=== PATIENT | female | born 1970 | race Caucasian/White ===

== ENCOUNTER → 2018-02-07 16:24 | Outpatient (CLI) | payer BC, SELFPAY ==
--- NOTE | 2018-02-07 16:28 | MM_ITS ---
MM Dig screening mamm BI w/CAD CAD Screening COMPARISON: Digital right mammogram 12/30/2015 and digital mammograms with CAD 07/25/2013 INDICATION: There is no personal or family history of breast cancer TECHNIQUE: Standard CC and MLO images were obtained. R2 CAD reviewed. FINDINGS: Moderate diffuse fibro glandular densities are seen in both breast primarily upper outer quadrants. There are few benign-appearing calcifications in each breast. There is a biopsy clip deep within the right breast. There is no suspicious lesion and no suspicious microcalcifications. IMPRESSION: Moderate diffuse breast density with no suspicious lesion seen BI-RADS Category: 2 Benign Finding(s) RECOMMENDED FOLLOW-UP: 1YR - 1 YEAR FOLLOW-UP (A letter has been sent to the patient regarding results of the study.)
== END ==
PROVIDERS: Family Provider Family Medicine; PCP Family Medicine; Visit Provider Obstetrics & Gynecology
DX: Z12.31 Encounter for screening mammogram for malignant neoplasm of breast (principal)
CPT/HCPCS: 77067

== ENCOUNTER → 2019-08-15 17:01 | Outpatient (CLI) | payer BC, SELFPAY ==
[2019-08-15 19:02] LABS: Alanine Aminotransferase 19 U/L (12-78); Alkaline Phosphatase 106 U/L (46-116); Aspartate Amino Transferase 9 U/L (15-37); Bilirubin,Direct 0.1 mg/dL (0.0-0.2); Bilirubin,Indirect 0.2 mg/dL (0.0-0.9); Bilirubin,Total 0.3 mg/dL (0.2-1.0); Total Protein,Serum 7.1 gm/dL (6.4-8.2)
== END ==
PROVIDERS: Visit Provider Family Medicine
DX: E78.2 Mixed hyperlipidemia (principal)
CPT/HCPCS: 80076

== ENCOUNTER → 2020-02-18 15:32 | Outpatient (CLI) | payer BC, SELFPAY ==
[2020-02-20 06:45] LABS: Covid-19 Nasal PCR Sendout Lex NOT DETECTED
== END ==
PROVIDERS: PCP Family Medicine; Visit Provider Family Medicine
DX: Z03.818 Encounter for observation for suspected exposure to other biological agents ruled out (principal)
CPT/HCPCS: U0004

== ENCOUNTER → 2020-05-07 14:46 | Outpatient (CLI) | payer BC, SELFPAY | PROVIDERS: PCP Family Medicine; Visit Provider Family Medicine | DX: Z03.818 Encounter for observation for suspected exposure to other biological agents ruled out (principal) | CPT/HCPCS: U0003 ==

== ENCOUNTER → 2020-07-14 13:20 | Outpatient (CLI) | payer BC, SELFPAY ==
--- NOTE | 2020-07-14 13:27 | MM_ITS ---
PROCEDURE: MM DIG SCREENING MAMM BI W/CAD Digital Breast Tomosynthesis Included CLINICAL INDICATION: Routine Screening Mammogram There is no personal or family history of breast cancer. There has been a previous biopsy right breast for benign disease. COMPARISON: MG DMSB DIG MAMM-SCREEN SAY from 10/16/2015 MG DMDXUAVR DIG MAMM-DX UNI ADD VIEWS-RT from 11/16/2015 MG DMDXUR DIG MAMM-DX UNI-RT from 12/30/2015 MG SCBI MM Dig screening mamm BI w/CAD from 02/07/2018 TECHNIQUE: Standard CC and MLO images and 3D Tomosynthesis was obtained. R2 CAD reviewed. FINDINGS: Moderate diffuse fibroglandular densities are seen in both breasts. There is a biopsy clip deep within the right breast. There are no CAD markings. There are couple of benign-appearing microcalcifications in each breast. There is no suspicious lesion and no suspicious microcalcifications. IMPRESSION: Moderate breast density with no suspicious lesions seen BI-RAD Category: 2 Benign Finding(s) FOLLOW-UP: 1YR 1 Year Follow-up (A letter has been sent to the patient regarding results of the study.) Dictated by: Dr. Moncho Dos Santos MD 07/16/2020 13:27 Dr. Moncho Dos Santos MD in [place] 07/16/2020 13:27
== END ==
PROVIDERS: PCP Family Medicine; Visit Provider Obstetrics & Gynecology
DX: Z12.31 Encounter for screening mammogram for malignant neoplasm of breast (principal)
CPT/HCPCS: 77063; 77067

== ENCOUNTER → 2023-01-04 15:00 | Outpatient (CLI) | payer BC, SELFPAY ==
--- NOTE | 2023-01-04 15:09 | XR_ITS ---
FINAL REPORT CLINICAL HISTORY: RT ANTERIOR KNEE PAIN, POPPING, SWELLING FINDINGS: There is no acute fracture or dislocation. Mild degenerative changes present in the right knee. There is no soft tissue abnormality. IMPRESSION: No acute fracture Mild degenerative change. Reviewed, Interpreted and Dictated by Nicola Roper MD Transcribed by Sarai Vuong Authenticated and [facility]
== END ==
LOC: RAD 15:02
PROVIDERS: PCP Family Medicine; Visit Provider Nurse Practitioner Family
DX: M25.561 Pain in right knee (principal)
CPT/HCPCS: 73562

== ENCOUNTER → 2023-01-18 10:32 | Outpatient (CLI) | payer BC, SELFPAY ==
[2023-01-18 10:47] LABS: Basophils # 0.1 K/mm3 (0-0.2); Basophils % 0.7 % (0.1-2.0); Eosinophils # 0.1 K/mm3 (0.0-0.4); Eosinophils % 1.6 % (0.1-12.0); Hematocrit 36.8 % (37.0-47.0); Hemoglobin 12.7 g/dL (12.2-16.2); Lymphocytes # 1.8 K/mm3 (0.7-4.5); Lymphocytes % 26.6 % (10-50); Mean Corpuscular HGB Conc 34.5 g/dL (31.8-35.4); Mean Corpuscular Hemoglobin 29.1 pg (27.0-31.2); Mean Corpuscular Volume 84.4 fl (81-99); Mean Platelet Volume 8.2 fl (7.4-10.4); Monocytes # 0.4 K/mm3 (0.1-1.0); Monocytes % 5.5 % (1.7-9.3); Neutrophils # 4.4 K/mm3 (1.8-7.8); Neutrophils % 65.6 % (37.0-80.0); Platelet Count 365 K/mm3 (142-424); Red Blood Count 4.36 M/mm3 (4.20-5.40); Red Cell Distribution Width 13.5 % (11.5-17.5); White Blood Count 6.7 K/mm3 (4.8-10.8)
[2023-01-18 11:09] LABS: Chloride 100 mmol/L (98-107)
[2023-01-18 11:12] LABS: Blood Urea Nitrogen 17 mg/dl (7-17); Calcium 9.4 mg/dl (8.4-10.2); Carbon Dioxide 26 mmol/L (22.0-30.0); Estimated Glomerular Filt Rate 105 ml/min (>60); GFR (African American) 127 ML/MIN (>60); Glucose 239 mg/dl (74-100)
[2023-01-18 11:15] LABS: Sodium 137 mmol/L (136-145)
== END ==
LOC: LAB 10:33
PROVIDERS: PCP Family Medicine; Visit Provider Surgery
DX: D17.1 Benign lipomatous neoplasm of skin and subcutaneous tissue of trunk (principal); Z01.812 Encounter for preprocedural laboratory examination
CPT/HCPCS: 36415; 80048; 85025

== ENCOUNTER 2023-02-02 06:03 | Day surgery (SDC) | payer BC, SELFPAY ==
[2023-02-02] VITALS (10 sets, daily range): BP systolic 108–142; BP diastolic 59–76; PULSE 91–100; RESP 16–18; TEMP 36.2–36.4; O2SAT 95–97; BMI 37.2
[2023-02-02 06:35] LABS: POC Glucose,Bedside 188 (70-110)
--- NOTE | 2023-02-02 06:59 | EXP.ANES.CKL ---
[facility] Disclaimer: The information contained in this section may have been updated after the patient was seen, as this information can be updated by other users. Medical History History of diabetes mellitus History of hyperlipidemia History of hypertension Lipoma of back Surgical History (Updated 02/02/23 @ 06:20 by Javier Weiner RN) History of History of colonoscopy History of lumbar discectomy Family History (Updated 02/02/23 @ 06:22 by Javier Weiner RN) Other Family history of CVA Family history of diabetes mellitus Family history of hypertension Social History (Updated 02/02/23 @ 06:24 by Javier Weiner RN) Smoking Status: Never smoker alcohol intake: never substance use type: denies use current occupational status: employed Travel in the last 8 weeks: None [facility] Anesthesia Checklist Patient Identification Patient Identification: Arm Band and Verbal (Name & ) Structural Data Admitted From: Home Planned Operative Procedure/s: excision lipoma on back Consent for Planned Operative Procedure(s) Verified: Yes Verified Documents: Surgical Consent and History and Physical NPO Status Verified Time NPO: 00:00 Additional verifications Fingerstick Blood Glucose: 188 Anesthesia Reactions: No Hx Blood Transfusions: No Blood Transfusion Reaction: No Airway Assessment Dentition: Good Dentition Neurological Assessment Level of Consciousness: Awake and Alert Hx Seizures: No Anesthesia Plan Anesthesia Risk discussed: Yes ASA Class: II Anesthesia Type: General
--- NOTE | 2023-02-02 07:58 | P.PNANES_ITS ---
[facility] Anesthesia Record Part I Anesthesia Record I Intake, IV Amount: 400 Estimated blood loss (mL): 5 Urine output (mL): 0 Blood Products used (#): none Blood Pressure: 142/72 SaO2: 96 Pulse Rate: 97 Respiratory Rate: 16 Temperature: 97.2 F Patient is:: Drowsy and Stable Stable to PACU at:: 07:55
--- NOTE | 2023-02-02 08:01 | EXP.OP.NOTE ---
Date of procedure: 02/02/23 Pre-op Diagnosis:: Right mid/upper back lipoma (8 cm) Post-op Diagnosis:: Same Procedure performed:: Excision of right mid/upper back lipoma (8 cm) Surgeon:: Adalberto Genao MD Anesthesia: LMA Estimated blood loss (mL): 10 Operative findings:: Lipoma within deep subcutaneous tissue encroaching upon fascial margin Operative note:: After informed consent was obtained the patient was taken to the operating room and placed in the supine position. General anesthesia with laryngeal mask airway was achieved. She was transferred to the left lateral decubitus position. Her back was then prepped and draped in a sterile fashion. After infiltration local anesthetic an incision was made over the palpable lesion. The deep subcutaneous tissue was dissected with electrocautery to the level of the encapsulated lipoma. A combination of blunt dissection and electrocautery were utilized to transect around the fatty tumor. The deeper margin encroached upon the fascia but did not penetrate the musculature. The lesion was excised in toto and passed off for pathologic evaluation. Electrocautery was utilized to achieve hemostasis. Skin was then reapproximated with interrupted 4-0 nylon in a mattress fashion. Dressings were applied and the patient was transferred to recovery in stable condition after removal of her laryngeal mask airway. Condition: stable Disposition: PACU Specimens:: Right mid/upper back lipoma Complications:: No immediate
[2023-02-02 08:07] LABS: POC Glucose,Bedside 170 (70-110)
--- NOTE | 2023-02-02 08:29 | SUR.PHASEI ---
0825- detailed report called to marcelle bush in post op 0826- pt left in stable condition with marcelle bush in post op at this time. VSS
--- NOTE | 2023-02-02 09:53 | EXP.ANES.II ---
[facility] Anesthesia Record Part II Anesthesia Record Part II Discharge Time: 08:25 Destination: Surgical Day Care (OP Surgery) PACU nurse assessment reviewed?: Yes Patient Condition:: Good Anesthesia Complications:: None Swallowing reflex intact?: Yes Cyanosis?: No Blood Pressure: 125/69 Pulse Rate: 96 Temperature: 97.4 F Mental Status: Alert & Oriented Pain level:: 0 Nausea and/or vomitting:: None Intake, IV Amount: 0
== END 2023-02-02 08:59 | disposition home or self-care (01) ==
PROVIDERS: PCP Family Medicine; Visit Provider Surgery
PROC: (CPT 11406; principal; 2023-02-02 07:30)
DX: D17.1 Benign lipomatous neoplasm of skin and subcutaneous tissue of trunk (principal); E11.9 Type 2 diabetes mellitus without complications
CPT/HCPCS: 11406; 82962; 96374; J2405

== ENCOUNTER → 2023-02-10 12:00 | Outpatient (POV) | payer BC, SELFPAY ==
[2023-02-10 12:27] VITALS: BP 146/92; PULSE 100; RESP 18; O2SAT 96; BMI 36.0
--- NOTE | 2023-02-10 12:42 | EXP.PAIN.OV ---
HPI Data of Consult Patient: new to practice Consult date: 02/10/23 Requesting Physician: Jignesh Allison CRNA Consult Narrative Reason for consult: Chronic right knee pain. History of present illness: Ms. Head is a 52 year old female who comes our clinic today for initial evaluation regarding which she describes as chronic right knee pain. Patient states the right knee began hurting 7 months ago. It is gradually gotten worse. She has difficulty with ambulation. Difficulty transitioning from sitting to standing. Difficulty with stairs. All of this due to right knee pain. She rates her pain 8/10 today. Upon examination it is obvious her right knee is swollen. Much larger than her left knee in comparison. She describes the pain as constant, dull, aching, sharp and stabbing at times. She initially went to her PCP regarding this pain. They gave her Medrol Dosepak. She reports the Medrol Dosepak helped slightly. CC: Jignesh Allison CRNA [facility] Disclaimer: The information contained in this section may have been updated after the patient was seen, as this information can be updated by other users. Medical History History of diabetes mellitus History of hyperlipidemia History of hypertension Lipoma of back Surgical History History of History of colonoscopy History of lumbar discectomy Family History Other Family history of CVA Family history of diabetes mellitus Family history of hypertension Social History (Updated 02/10/23 @ 12:28 by Twila Ann RN) Smoking Status: Never smoker alcohol intake: never substance use type: denies use current occupational status: employed Travel in the last 8 weeks: None Meds Home Medications and Allergies Home Medications Medication Instructions Recorded Confirmed Type dapagliflozin propaned 5 2 tab PO QAM Diabetes 10/23/17 02/10/23 History mg-metformin ER 1,000 mg tablet, ext rel 24hr (Xigduo XR) paroxetine HCl 40 mg tablet (Paxil) 40 mg PO QAM mood 10/23/17 02/10/23 History atorvastatin 20 mg tablet 20 mg PO DAILY choilesterol 07/07/20 02/10/23 History semaglutide 7 mg tablet (Rybelsus) 7 mg PO DAILY Diabetes 07/07/20 02/10/23 History lisinopril 5 mg tablet 5 mg PO DAILY bp 01/18/23 02/10/23 History hydrocodone 5 mg-acetaminophen 325 1 tab PO Q6H PRN post-op pain #13 02/02/23 02/10/23 Rx mg tablet tabs New Prescriptions to Start Prescriptions: Allergies Allergy/AdvReac Type Severity Reaction Status Date / Time No Known Drug Allergies Allergy Unknown Verified 02/08/23 09:40 [NKDA] Objective Vital signs: Pulse Resp BP Pulse Ox O2 Del Method 100 H 18 146/92 H 96 Room Air 02/10/23 12:27 02/10/23 12:27 02/10/23 12:27 02/10/23 12:27 02/10/23 12:27 Opioid Risk Tool Opioid Risk Tool-Female Family hx alcohol abuse: No Family hx illegal drugs: No Family hx rx drug abuse: No Personal hx alcohol abuse: No Personal hx illegal drugs: No Personal hx rx drug abuse: No Age: 45+ Hx of sexual abuse: No Mental health issues-ADD,OCD,Bipolar, etc: No Hx of depression: No Female Risk Score: 0 Assessment and Plan *Assessment and plan (1) Arthritis of right knee: Status: Acute Category: Medical Code(s): M17.11 - Unilateral primary osteoarthritis, right knee (2) Chronic pain of right knee: Status: Acute Category: Medical Code(s): M25.561 - Pain in right knee; G89.29 - Other chronic pain (3) Effusion of knee joint right: Status: Acute Category: Medical Code(s): M25.461 - Effusion, right knee Plan Discussed in detail with the patient regarding treatment options of her right knee effusion and pain. I think it would be reasonable to aspirate the knee. After aspiration
== END ==
LOC: SC.PAIN 12:00
PROVIDERS: Visit Provider Nurse Anesthetist, Certified Registered
DX: M17.11 Unilateral primary osteoarthritis, right knee (principal); M25.561 Pain in right knee; G89.29 Other chronic pain; M25.461 Effusion, right knee
CPT/HCPCS: 99202; G0463

== ENCOUNTER 2023-02-21 13:49 | Day surgery (SDC) | payer BC, SELFPAY ==
[2023-02-21 13:57] VITALS: BP 145/79; PULSE 109; RESP 18; TEMP 36.3; O2SAT 97; BMI 36.0
--- NOTE | 2023-02-21 14:09 | EXP.PAIN.PRO ---
Procedure Date: 02/21/23 Time: 14:00 Anesthesiologist:: Jignesh Allison CRNA Complications:: None Pre-procedure Diagnosis:: Effusion right knee. Osteoarthritis right knee. Chronic right knee pain. Post-procedure Diagnosis:: Same. Indications for Procedure:: Patient is a very pleasant 52-year-old female that comes our clinic today for aspiration right knee and intra-articular cortisone injection. Patient complains of right knee pain with ambulation. Difficulty with stairs. She rates her pain 7/10. Procedure Details:: Details of the procedure explained to the patient. The patient taken the procedure room placed in the supine position. The right knee was gapped with a pillow. The anterior and lateral portions of the right knee were cleansed using chlorhexidine as a cleansing solution. Using a 25-gauge needle the skin and subcutaneous tissue was anesthetized with 1 cc of 1% lidocaine on the superior right lateral border of the knee joint. Using an 18-gauge inch and half needle the right knee joint was accessed through the same marker. 10 mL of solution of a clear yellow-tinged fluid was aspirated from the knee joint. At this time a 10 cc solution containing 0.25% Marcaine +1% lidocaine and 40 mg of Depo-Medrol was injected. Needle was removed. Band-Aid applied. Patient tolerated procedure without difficulty. There are no complications. Plan and Disposition:: Patient was discharged without incident.
[2023-02-21 14:10] VITALS: BP 130/86; PULSE 94; RESP 18; O2SAT 98
== END 2023-02-21 14:10 | disposition home or self-care (01) ==
PROVIDERS: PCP Family Medicine; Visit Provider Nurse Anesthetist, Certified Registered
DX: M25.461 Effusion, right knee (principal); M17.11 Unilateral primary osteoarthritis, right knee; M25.561 Pain in right knee; G89.29 Other chronic pain
CPT/HCPCS: 20610; J1040

== ENCOUNTER → 2023-03-07 13:31 | Outpatient (CLI) | payer BC, SELFPAY ==
--- NOTE | 2023-03-07 13:36 | MM_ITS ---
PROCEDURE INFORMATION: Exam: MG Bilateral Screening 3D Mammography Exam date and time: 03/07/2023 1:26 PM Age: 52 years old Clinical indication: Screening examination; No personal or family history of breast cancer TECHNIQUE: Imaging protocol: Bilateral Screening tomosynthesis and 2D mammography including computer-aided detection (CAD) when performed. COMPARISON: 1. MG MM DIG SCREENING MAMM BI W/CAD 07/14/2020 1:41 PM 2. MG SCBI MM Dig screening mamm BI w/CAD 02/07/2018 4:35 PM FINDINGS: MAMMOGRAPHY: Breast composition: The breasts are heterogeneously dense, which may obscure small masses. Mass: None. Architectural distortion: None. Calcifications: No suspicious calcifications. Asymmetric density: None. Skin thickening: None. Axillary adenopathy: None. IMPRESSION: No mammographic evidence of malignancy. Annual screening is recommended unless otherwise clinically indicated. ASSESSMENT: BI-RADS Category 1: Negative
== END ==
PROVIDERS: PCP Family Medicine; Visit Provider Obstetrics & Gynecology
DX: Z12.31 Encounter for screening mammogram for malignant neoplasm of breast (principal)
CPT/HCPCS: 77063; 77067

== ENCOUNTER → 2023-03-08 14:20 | Outpatient (POV) | payer BC, SELFPAY ==
[2023-03-08 14:46] VITALS: BP 149/100; PULSE 89; RESP 20; BMI 34.8
--- NOTE | 2023-03-08 14:59 | EXP.PAIN.SOA ---
[facility] Pain Management SOAP Note Subjective:: Patient is a pleasant 52-year-old female who presents today for follow-up of right knee intra-articular injection along with aspiration of joint effusion on 02/21/2023. We are currently treating the patient for chronic right knee pain, osteoarthritis right knee. Today she rates her pain a 1 out of 10. She states that she has had at least 50% improvement following this procedure. She states that initially the first couple days after the injection worked great and she had significant improvement. She states then it went back to baseline however over the next couple of days it did get better and continues to do so up until today. Patient states that she has noticed she is not limping when she walks and she has been able to increase her activity with decreased pain symptoms. Patient does state that she is only had the x-ray imaging of her right knee and has not seen any orthopedic doctors for this pain. Her [place] is [phone]. Its been reviewed and appropriate. Review of Systems: General: No recent weight changes, no fever, no sleep disturbances Respiratory: No cough, no shortness of air, no recurring pulmonary infections Cardiovascular/peripheral vascular: No chest pain, no palpitations, no edema, no shortness of breath Gastrointestinal: No new onset incontinence, normal bowel movements reported Genitourinary: No new onset incontinence Musculoskeletal: Right knee pain Psychiatric: [Normal mood/affect] Neurological: [Denies weakness in extremities], [denies balance issues] Objective:: Physical Exam: General: Alert and oriented x3, no acute distress, pleasant and cooperative Lungs: Respirations even and unlabored, symmetrical chest expansion Eyes: PERRL Musculoskeletal: Flexion and extension of right knee somewhat guarded secondary to pain, [antalgic gait noted] Neurological: Speech clear, no gross sensory deficit Assessment:: Chronic right knee pain, osteoarthritis right knee Plan:: Patient has had significant improvement following her procedure and does not require any additional injective therapy at this time. I will order MRI without contrast of her right knee and I have discussed with her that we may in the future send her for referral for an rn orthopedic based off the findings. I have also discussed with the patient to try the compounding cream on her right knee and let us know if this provides additional relief. Patient will return to clinic in 1 month following her MRI for reevaluation of symptoms and plan of care. Patient has been instructed to contact the clinic with any concerns before the next appointment. Dr. Cerna has reviewed this note and agrees with this plan of care. This note was dictated using voice recognition software and make contain errors or omissions. [facility] Disclaimer: The information contained in this section may have been updated after the patient was seen, as this information can be updated by other users. Medical History History of diabetes mellitus History of hyperlipidemia History of hypertension Lipoma of back Surgical History History of History of colonoscopy History of lumbar discectomy Family History Other Family history of CVA Family history of diabetes mellitus Family history of hypertension Social History Smoking Status: Never smoker alcohol intake: never substance use type: denies use current occupational status: employed Travel in the last 8 weeks: None
== END ==
PROVIDERS: Visit Provider Nurse Practitioner Family
DX: M17.11 Unilateral primary osteoarthritis, right knee (principal); M25.561 Pain in right knee; G89.29 Other chronic pain
CPT/HCPCS: 99212; G0463

== ENCOUNTER → 2023-03-13 16:18 | Outpatient (CLI) | payer BC, SELFPAY ==
--- NOTE | 2023-03-13 16:18 | US_ITS ---
PROCEDURE: US TRANSVAGINAL CLINICAL INDICATION: abnormal uterine and vaginal bleeding COMPARISON: No exams were available for comparison FINDINGS: Transvaginal sonographic images of the pelvis were obtained. UTERUS: 10.4 cm x 7.0 cmx 6.1 cm the endometrium could not be visualized. There are at least 3 separate fibroids. Fibroid 1 central measuring 2.4 cm x 2.2 cm x 4.2 cm Fibroid 2 central measuring 4.2 cm x 3.9 cm x 3.1 cm Fibroid 3 posterior measuring 4.6 cm x 5.6 cm x 3.4 cm LEFT OVARY: 1.6 cmx1.4 cmx1.5cm with a volume of 1.7ml.Appears atrophic RIGHT OVARY: 1.7 cmx 1.7 cm. Appears atrophic Both ovaries are seen and appear normal. Doppler flow to both ovaries are seen. There is trace fluid in the cul-de-sac. IMPRESSION: 1. Enlarged uterus with at least 3 fibroids. The largest measures 5.6 cm. The others measure 4.2 cm and 4.2 cm. 2. The endometrium could not be visualized as a result of the fibroids. 3. Both ovaries appear atrophic. 4. There is trace fluid in the cul-de-sac. Dictated by: Kieran Hightower MD 03/14/2023 16:34 Kieran Hightower MD in [place] 03/14/2023 16:34
== END ==
PROVIDERS: PCP Family Medicine; Visit Provider Obstetrics & Gynecology
DX: N93.9 Abnormal uterine and vaginal bleeding, unspecified (principal)
CPT/HCPCS: 76830

== ENCOUNTER → 2023-06-07 16:02 | Outpatient (CLI) | payer BC, SELFPAY ==
[2023-06-07 16:48] LABS: Chloride 97 mmol/L (98-107); Sodium 136 mmol/L (136-145)
[2023-06-07 16:49] LABS: Potassium 3.7 mmoL/L (3.5-5.1)
[2023-06-07 16:51] LABS: Alanine Aminotransferase 32 U/L (12-78); Albumin Level 4.8 g/dl (3.5-5.0); Albumin/Globulin Ratio 1.5 (1.1-1.8); Alkaline Phosphatase 136 U/L (38-126); Anion Gap 13.7 mEq/L (5-15); Aspartate Amino Transferase 33 U/L (14-36); Bilirubin,Total 0.4 mg/dl (0.2-1.3); Blood Urea Nitrogen 21 mg/dl (7-17); Calcium 9.3 mg/dl (8.4-10.2); Carbon Dioxide 29 mmol/L (22.0-30.0); Estimated Glomerular Filt Rate 88 ml/min (>60); GFR (African American) 106 ML/MIN (>60); Globulin 3.1 g/dL (1.3-3.2); Glucose 221 mg/dl (74-100); Total Protein,Serum 7.9 g/dl (6.3-8.2)
[2023-06-07 16:52] LABS: Basophils # 0.1 K/mm3 (0-0.2); Basophils % 0.6 % (0.1-2.0); Eosinophils # 0.4 K/mm3 (0.0-0.4); Eosinophils % 4.9 % (0.1-12.0); Hemoglobin 13.8 g/dL (12.2-16.2); Lymphocytes # 2.1 K/mm3 (0.7-4.5); Lymphocytes % 27.6 % (10-50); Mean Corpuscular HGB Conc 36.2 g/dL (31.8-35.4); Mean Corpuscular Hemoglobin 30.4 pg (27.0-31.2); Mean Platelet Volume 7.8 fl (7.4-10.4); Monocytes # 0.4 K/mm3 (0.1-1.0); Monocytes % 5.2 % (1.7-9.3); Neutrophils # 4.8 K/mm3 (1.8-7.8); Neutrophils % 61.7 % (37.0-80.0); Platelet Count 248 K/mm3 (142-424); Red Blood Count 4.52 M/mm3 (4.20-5.40); Red Cell Distribution Width 14.6 % (11.5-17.5); White Blood Count 7.7 K/mm3 (4.8-10.8)
[2023-06-07 17:08] LABS: HCG,Quantitative < 2 mIU/ml (0-5.42)
== END ==
PROVIDERS: PCP Family Medicine; Visit Provider Obstetrics & Gynecology
DX: N93.9 Abnormal uterine and vaginal bleeding, unspecified (principal)
CPT/HCPCS: 36415; 80053; 84702; 85025; 86850

== ENCOUNTER 2023-06-14 08:14 | Inpatient (IN) | payer BC, SELFPAY ==
[2023-06-13 12:41] VITALS: BMI 36.3
[2023-06-14] VITALS (21 sets, daily range): BP systolic 125–181; BP diastolic 65–100; PULSE 91–110; RESP 12–18; TEMP 36.4–43; O2SAT 94–100
[2023-06-14 06:31] LABS: POC Glucose,Bedside 192 (70-110)
--- NOTE | 2023-06-14 07:22 | EXP.HP ---
History of Present Illness *Admission Date: 06/14/23 *Reason for visit:: hysterectomy *History of present illness: Jodie Head is an established pt presenting today for hysterectomy. Plan for a total laparoscopic hysterectomy with bilateral salpingo-oophorectomy. Surgical hx significant for CS x2, and a lumbar discectomy. Medical hx: HTN, Diabetes, HLD and AUB NKDA Previous visits: Transvaginal ultrasound that revealed several fibroids with a clinical history of heavy prolonged painful menses. [facility] Disclaimer: The information contained in this section may have been updated after the patient was seen, as this information can be updated by other users. Medical History History of diabetes mellitus History of hyperlipidemia History of hypertension Lipoma of back Surgical History History of History of colonoscopy History of lumbar discectomy Hx of excision of dermoid cyst Family History Other Family history of CVA Family history of diabetes mellitus Family history of hypertension Social History Smoking Status: Never smoker alcohol intake: never substance use type: denies use current occupational status: employed Travel in the last 8 weeks: Inside the [place] Review of Systems Review of Systems Review of systems (narrative): Review of Systems Constitutional: Denies fever, chills, and sweats Eyes: Denies vision change/ pain Respiratory: Denies cough and shortness of breath Cardiovascular: Denies chest pain and lightheadedness Gastrointestinal: Denies abdominal pain, nausea, vomiting. Genitourinary: endorses heavy vaginal bleeding. Denies dysuria and incontinence Musculoskeletal: Denies shoulder pain and back pain Neurological: Denies change in speech or headaches Meds Home Medications and Allergies Home Medications Medication Instructions Recorded Confirmed Type dapagliflozin propaned 5 2 tab PO QAM Diabetes 10/23/17 06/14/23 History mg-metformin ER 1,000 mg tablet, ext rel 24hr (Xigduo XR) paroxetine HCl 40 mg tablet (Paxil) 40 mg PO QAM mood 10/23/17 06/14/23 History atorvastatin 20 mg tablet 20 mg PO DAILY choilesterol 07/07/20 06/14/23 History lisinopril 5 mg tablet 5 mg PO DAILY bp 01/18/23 06/14/23 History semaglutide 14 mg tablet (Rybelsus) 14 mg PO DAILY . 06/07/23 06/14/23 History New Prescriptions to Start Prescriptions: Allergies Allergy/AdvReac Type Severity Reaction Status Date / Time No Known Drug Allergies Allergy Unknown Verified 06/07/23 15:25 [NKDA] Exam Data for Last 24 hours Vital signs and Labs for Last 24 Hours: Temp Pulse Resp BP Pulse Ox O2 Del Method 98.1 F 98 H 18 133/88 96 Room Air 06/14/23 06:20 06/14/23 06:20 06/14/23 06:20 06/14/23 06:20 06/14/23 06:20 06/14/23 06:20 Laboratory Results - last 24 hr 06/14/23 06:20: Blood Type O Positive, Antibody Screen Negative 06/14/23 06:21: POC Glucose 192 H I & O for Last 24 hours: Intake & Output 06/11/23 06/12/23 06/13/23 06/14/23 23:59 23:59 23:59 23:59 Weight 205 lb Constitutional Constitutional: no acute distress *Routine HEENT Exam Head: Present normocephalic Eye: Present EOMI and PERRL ENT: Present mucous membranes moist *Routine Neck Exam Neck: Present supple; Absent lymphadenopathy *Routine Respiratory Exam Respiratory: Present CTA bilaterally *Routine Cardiovascular Exam Cardiovascular: Present RRR *Routine Abdominal Exam Abdominal: Present soft and normoactive bowel sounds; Absent tenderness *Routine Rectal Exam Rectal:: deferred *Routine Genitalia Exam Genitalia:: deferred *Routine Extremities Exam Extremities: Absent cyanosis, clubbing or edema *Routine Skin Exam Skin: Present warm; Absent rash *Rout
--- NOTE | 2023-06-14 08:25 | P.PNANES_ITS ---
[facility] Disclaimer: The information contained in this section may have been updated after the patient was seen, as this information can be updated by other users. Medical History History of diabetes mellitus History of hyperlipidemia History of hypertension Lipoma of back Surgical History History of History of colonoscopy History of lumbar discectomy Hx of excision of dermoid cyst Family History Other Family history of CVA Family history of diabetes mellitus Family history of hypertension Social History Smoking Status: Never smoker alcohol intake: never substance use type: denies use current occupational status: employed Travel in the last 8 weeks: [place] the [place] [facility] Anesthesia Checklist Patient Identification Patient Identification: Verbal (Name & ) Structural Data Admitted From: Home Planned Operative Procedure/s: [facility] NPO Status Verified Time NPO: 00:00 Additional verifications Anesthesia Reactions: No Hx Blood Transfusions: No Blood Transfusion Reaction: No Airway Assessment Mallampati Score:: Class II C-Spine Mobility Assessed: Yes TMJ Mobility Assessed: Yes Dentition: Good Dentition Neurological Assessment Level of Consciousness: Awake, Alert and Appropriate Anesthesia Plan Anesthesia Risk discussed: Yes Anesthesia Plan: Verified ASA Class: II Anesthesia Type: General
--- NOTE | 2023-06-14 08:38 | HMH.PHAINT1 ---
Pharmacy Intervention Comments: MEDICATION RECONCILIATION COMPLETED ON PATIENT USING EXTERNAL FILL HISTORY FROM PHARMACY. -ANDREW HUYNH, PARKD
--- NOTE | 2023-06-14 08:40 | SUR.OPER ---
Case converted from Laparoscopic to open procedure at 827, notified per Dr Agustin
--- NOTE | 2023-06-14 09:56 | SUR.OPER ---
updated at 0955 by Tory Kwan RN
--- NOTE | 2023-06-14 10:48 | SUR.OPER ---
updated at 1045 by Tory Kwan RN
--- NOTE | 2023-06-14 11:45 | EXP.ANES.I ---
[facility] Anesthesia Record Part I Anesthesia Record I Intake, IV Amount: 2,800 Hydration: Adequate Estimated blood loss (mL): 600 Urine output (mL): 350 Blood Pressure: 156/83 SaO2: 94 Pulse Rate: 95 Airway Patency: Patent Respiratory Rate: 12 Temperature: 97.8 F Patient is:: Awake and Stable Stable to PACU at:: 11:44
--- NOTE | 2023-06-14 11:58 | EXP.OP.NOTE ---
Date of procedure: 06/14/23 Pre-op Diagnosis:: 1. Leiomyomatous uterus 2. Abnormal uterine bleeding Post-op Diagnosis:: 1. Leiomyomatous uterus 2. Abnormal uterine bleeding Procedure performed:: 1. Total abdominal hysterectomy 2. Bilateral salpingo-oophorectomy 3. Cystoscopy Surgeon:: Gaby Agustin DO Agricultural Produce Sorter(s):: Adelaida Aquino DO MANAGER OF MEDICAL:: Abhinav King Anesthesia: GETA Estimated blood loss (mL): 600 Operative findings:: OPERATIVE FINDINGS: 1. Bimanual examination revealed an 20 week with irregular contour. Non palpable adnexal masses. Atrophic vaginal mucosa 2. Laparoscopic exam revealed a large uterus. We were unable to visualize the anterior vesicouterine peritoneum or the posterior culdesac with max pneumoperitoneum. Decision was made to proceed with total abdominal hysterectomy. 3. Cystoscopy revealed bilaterally patent ureters without bladder injury Operative note:: After informed consent was obtained and all questions were answered to the patient?s satisfaction in layman?s terms, she was taken to the Operating Room where general anesthesia was obtained without any difficulty. Pt was placed in dorsal lithotomy position using yellow fin stirrups. EUA revealed findings above. The vagina and abdomen were prepped and draped in normal sterile fashion. Uterine manipulator was placed. The bladder was drained and methylene blue was instilled into the bladder. Attention was then turned to the abdomen where a total of 10mL of 0.5% Marcaine was injected supraumbilically. An 11mm incision was made, veres entry failed twice and entry was obtained with direct laparoscopic entry with a non bladed trocar at the supraumbilical point. Laparoscopic entry confirmed. The abdomen was insufflated using approximately 4 liters of CO2 gas. No evidence of injury with entry to the bowel, omentum or surrounding structures appreciated. Immediately given poor visualization. Decision was made to proceed with MADDIE. a barber catheter was inserted secondary to suspicion for a longer duration. A midline vertical skin incision was mapped out and made. Incision was carried down to the fascia with the bovie. The fascia was knicked in the midline and extended superiorly and inferiorly sharply. The bowel was packed away with moist lap sponges and an O'gio [place] retractor was placed. The uterus was markedly evident upon entering the peritoneal cavity. The uterus was then exteriorized and noted to have the findings as above. The uterus was so large that it was occupying the majority of the diameter of the retractor. The uterus was grasped with a Omid clamp. There were adhesions of the left colon to the adnexa that were sharply taken down with metzenbaum scissors. The round ligaments were identified bilaterally, grasped with the Enseal, coagulated and transected. Given the still very large nature of the uterus and limited exposure, decision was made to proceed with a myomectomy of the fibroid that was intramural/ subserosal on the posterior wall to allow more exposure. The bovie was used to incise the capsule and the fibroid was shelled out, and passed off to be sent to pathology. A window was made in the broad ligament and the IP ligament was coagulated and transected bilaterally. The anterior leaflet of the broad ligament was dissected down. A straight femi clamp was placed, proximal to the uterine body along the broad ligament and it was cut and suture ligated. This process was repeated on the contralateral side. The myomectomy cut edge of the uterus was noted to be bleeding and closed to decrease blood loss with a running locking stitch. This allowed enough exposure to safely dissect off the bladder from the lower uterine segment. Straight clamps proximal to the uterus were continued until the uterine vessels and cardinal ligaments were cut and suture ligated bilaterally with 0-vicryl. Given the bulky nature of the uterus adequate visualization was difficult. A supracervical hyste
--- NOTE | 2023-06-14 15:00 | PC.NURSE ---
pt asked about diabetes home medication for pharmacy to get packaged to be administered. pt stated I do not check my glucose at home and will be okay without medications while here. pt stated this infront of this nurse and Ray Vu RN.
--- NOTE | 2023-06-14 18:25 | PC.NURSE ---
pt alert and oriented. pt ls cta. abdomen soft, non-tender. bowel sounds active. pt up with assistance to bathroom and voided this shift. pt has preveena in place to vertical incision site with telfa over. no drainage noted. scuds in place. call light w/i reach. family at bedside.
[2023-06-15 00:21] VITALS: BP 120/56; PULSE 104; RESP 17; TEMP 36.8; O2SAT 98
[2023-06-15 05:05] VITALS: BP 97/55; PULSE 90; RESP 17; TEMP 36.9; O2SAT 96
[2023-06-15 05:08] VITALS: O2SAT 96
[2023-06-15 06:40] LABS: Basophils % 0.2 % (0.1-2.0); Eosinophils % 0.2 % (0.1-12.0); Hematocrit 28.7 % (37.0-47.0); Hemoglobin 10.4 g/dL (12.2-16.2); Lymphocytes # 1.8 K/mm3 (0.7-4.5); Lymphocytes % 18.4 % (10-50); Mean Corpuscular HGB Conc 36.5 g/dL (31.8-35.4); Mean Corpuscular Hemoglobin 30.7 pg (27.0-31.2); Mean Corpuscular Volume 84.1 fl (81-99); Mean Platelet Volume 8.5 fl (7.4-10.4); Monocytes # 0.4 K/mm3 (0.1-1.0); Monocytes % 4.4 % (1.7-9.3); Neutrophils # 7.5 K/mm3 (1.8-7.8); Neutrophils % 76.7 % (37.0-80.0); Platelet Count 266 K/mm3 (142-424); Red Blood Count 3.41 M/mm3 (4.20-5.40); Red Cell Distribution Width 15.3 % (11.5-17.5); White Blood Count 9.7 K/mm3 (4.8-10.8)
--- NOTE | 2023-06-15 08:02 | PC.NURSE ---
Patient sitting up in bed, watching TV. Rates pain at a 2/10. Spouse at bedside. 100% of full liquid meal try consumed. When asked if she had had any solids patient states, Oatmeal . Preevena wound vac in place to abdomen, black granulofoam and telfa noted to surgical site, CDI. No drainage noted to the drainage line travel to the vac.
--- NOTE | 2023-06-15 08:15 | PC.NURSE ---
Per Dr. Agustin, patient is to shower, and eat lunch. If no n/v, lightheaded/dizzy patient to be discharged home after lunch.
[2023-06-15 08:21] VITALS: BMI 36.3
[2023-06-15 08:21] LABS: POC Glucose,Bedside 273 (70-110)
--- NOTE | 2023-06-15 08:25 | PC.NURSE ---
Per Jay Jay in pharmacy, unable to verify home meds due to presentation of medications. Pt has all of her pills for one day combined in a pill bottle, medications are not in individual bottles. Meds can be identified but unable to know if they are . Informed patient of issue with combined medications issue. Per pharmacy, due to pt being discharged after lunch today, she is advised to take the Xigduo and Rybelsus at discharge.
--- NOTE | 2023-06-15 12:05 | EXP.DC.SUM ---
General Admission date:: 06/14/23 Discharge date: 06/15/23 HPI HPI HPI: Jodie Head is an established pt presenting today for hysterectomy. Plan for a total laparoscopic hysterectomy with bilateral salpingo-oophorectomy. Surgical hx significant for CS x2, and a lumbar discectomy. Medical hx: HTN, Diabetes, HLD and AUB NKDA Previous visits: Transvaginal ultrasound that revealed several fibroids with a clinical history of heavy prolonged painful menses. Hospital Course Hospital Course Hospital Course: Dorothy Head is a 53-year-old postop day #1 from a total abdominal hysterectomy and bilateral salpingo-oophorectomy. This was completed secondary to a large fibroid uterus. Her surgery was uneventful. Her postop course has been uncomplicated. She is recovering well. She is eating without nausea or vomiting. She is ambulating and voiding without dysuria. She has passed gas. She took a shower without any dizziness or lightheadedness. Discussed iron supplementation at home but with diet and p.o. iron tablet. Routine discharge options reviewed with the patient in detail and she voiced understanding. Discussed them with her significant other. She will follow-up in 1 week for an incision check Exam Data for Last 24 hours Vital signs and Labs for Last 24 Hours: Temp Pulse Resp BP Pulse Ox O2 Del Method O2 Flow Rate 98.4 F 90 17 97/55 L 96 Room Air 1 06/15/23 05:05 06/15/23 05:05 06/15/23 05:05 06/15/23 05:05 06/15/23 05:08 06/15/23 11:57 06/14/23 15:30 Laboratory Results - last 24 hr 06/14/23 11:47: POC Glucose 273 H 06/15/23 06:20: WBC 9.7, RBC 3.41 L, Hgb 10.4 L, Hct 28.7 L, MCV 84.1, MCH 30.7, MCHC 36.5 H, RDW 15.3, Plt Count 266, MPV 8.5, Neut % (Auto) 76.7, Lymph % (Auto) 18.4, Cottle % (Auto) 4.4, Eos % (Auto) 0.2, Baso % (Auto) 0.2, Neut # (Auto) 7.5, Lymph # (Auto) 1.8, Cottle # (Auto) 0.4, Eos # (Auto) 0.0, Baso # (Auto) 0.0 I & O for Last 24 hours: Intake & Output 06/12/23 06/13/23 06/14/23 06/15/23 23:59 23:59 23:59 23:59 Intake Total 3482 / 3482 1758 / 1758 Output Total 2300 / 2300 625 / 625 Balance 1182 / 1182 1133 / 1133 Weight 205 lb 204 lb 12.951 oz Constitutional Constitutional: no acute distress *Routine HEENT Exam Head: Present normocephalic Eye: Present EOMI and PERRL ENT: Present mucous membranes moist *Routine Neck Exam Neck: Present supple; Absent lymphadenopathy *Routine Respiratory Exam Respiratory: Present CTA bilaterally *Routine Cardiovascular Exam Cardiovascular: Present RRR *Routine Abdominal Exam Abdominal: Present soft and normoactive bowel sounds; Absent tenderness *Routine Extremities Exam Extremities: Absent cyanosis, clubbing or edema *Routine Skin Exam Skin: Absent rash Comments: Midline vertical incision covered by Katie dressing. Reviewed dressing care *Routine Neurological Exam Neurological: Present alert and oriented X3 Results Data Completed and Pending Labs on day of discharge: Labs from last 24 hours 06/15/23 06/14/23 06:20 11:47 WBC 9.7 RBC 3.41 L Hgb 10.4 L Hct 28.7 L MCV 84.1 MCH 30.7 MCHC 36.5 H RDW 15.3 Plt Count 266 MPV 8.5 Neut % (Auto) 76.7 Lymph % (Auto) 18.4 Cottle % (Auto) 4.4 Eos % (Auto) 0.2 Baso % (Auto) 0.2 Neut # (Auto) 7.5 Lymph # (Auto) 1.8 Cottle # (Auto) 0.4 Eos # (Auto) 0.0 Baso # (Auto) 0.0 POC Glucose 273 H DS: Diagnosis Discharge Diagnosis (1) Abnormal uterine bleeding (AUB): Status: Acute Code(s): N93.9 - Abnormal uterine and vaginal bleeding, unspecified (2) Fibroid uterus: Status: Acute Code(s): D25.9 - Leiomyoma of uterus, unspecified (3) S/P hysterectomy with oophorectomy: Status: Acute Code(s): Z90.710 - Acquired absence of both cervix and uterus; Z90.721 - Acquired absence of ovaries, unilateral Problem details: Doing well Discharge home with pain medicine Encouraged p.o. iron supp
--- NOTE | 2023-06-19 07:50 | P.PNANES_ITS ---
[facility] Anesthesia Record Part II Anesthesia Record Part II Discharge Time: 12:14 Destination: Surgical Day Care (OP Surgery) PACU nurse assessment reviewed?: Yes Patient Condition:: Good Anesthesia Complications:: None Swallowing reflex intact?: Yes Airway Patency: Patent Cyanosis?: No Blood Pressure: 158/89 SaO2: 94 Respiratory Rate: 16 Pulse Rate: 91 Temperature: 99 F Mental Status: Alert & Oriented Pain level:: 2 Nausea and/or vomitting:: None Intake, IV Amount: 0 Hydration: Adequate
[2023-06-19 07:53] VITALS: BP 158/89; PULSE 91; RESP 16; TEMP 37.2; O2SAT 94
== END 2023-06-15 13:14 | disposition home or self-care (01) | DRG 743 ==
LOC: OB 06-15 01:11
PROVIDERS: Admitting Provider Obstetrics & Gynecology; PCP Family Medicine; Visit Provider Obstetrics & Gynecology
PROC: 0UT90ZZ Resection of Uterus, Open Approach (ICD-10-PCS; principal; 2023-06-14 07:30)
DX: D25.9 Leiomyoma of uterus, unspecified (principal); N93.9 Abnormal uterine and vaginal bleeding, unspecified; I10 Essential (primary) hypertension; E11.9 Type 2 diabetes mellitus without complications; E78.5 Hyperlipidemia, unspecified; Z79.84 Long term (current) use of oral hypoglycemic drugs; Z79.899 Other long term (current) drug therapy
CPT/HCPCS: 58150; 52000; 36415; 82962; 85025; 86850; 96374; G0378; J2405; J2710

== ENCOUNTER 2023-07-11 07:31 | Day surgery (SDC) | payer BC, SELFPAY ==
[2023-07-07 12:08] VITALS: BMI 35.4
[2023-07-11] VITALS (7 sets, daily range): BP systolic 114–148; BP diastolic 71–92; PULSE 80–92; RESP 16–18; TEMP 36.3–36.6; O2SAT 96–99
--- NOTE | 2023-07-11 08:21 | HMH.SCOPE ---
Procedure: Date: 07/11/23 Patient Date of :: 1970 Procedure Performed:: Colonoscopy Indications:: History of colon polyps Performing Provider:: Adalberto Genao MD Referring Provider:: . Sedation:: Monitored anesthesia care Procedure:: After informed consent was obtained the patient was taken to the endoscopy suite. Sedation ensued after the patient was transferred to the left lateral decubitus position. Pulse, blood pressure, and oxygen saturation were monitored throughout the procedure. Digital rectal exam revealed no significant abnormality. The colonoscope was placed in position. The entire colon was evaluated. The colonoscope was carefully removed and the patient was transferred to recovery in stable condition. Please see findings and specimens below for detail. Findings:: Bowel preparation moderate Mild hemorrhoidal tags Fairly profound lack of relaxation Fairly profound tortuosity Right colon polyp Specimens:: Right colon polyp (cold biopsy forceps) Recommendations:: Timing of repeat colonoscopy is pending pathology will likely be between 2-2 years with alternate/extended bowel preparation secondary to history of polyps, moderate bowel preparation, tortuosity, and lack of relaxation. Complications:: No immediate Estimated blood obtained (mL): 1 Colonoscopy Component Colonoscopy Component Was a colonoscopy performed during today's procedure?: Yes Recommended follow up colonoscopy of at least 10 years?: No If no, follow up colonoscopy recommended in ___ years?: (See above) Reason for not recommending >/= 10 yr follow-up interval?: (See above)
--- NOTE | 2023-07-11 09:16 | P.PNANES_ITS ---
[facility] Anesthesia Record Part I Anesthesia Record I Intake, IV Amount: 200 Hydration: Adequate Estimated blood loss (mL): 1 Urine output (mL): 0 Blood Products used (#): none Blood Pressure: 114/71 SaO2: 97 Pulse Rate: 87 Airway Patency: Patent Respiratory Rate: 16 Temperature: 97.3 F Patient is:: Awake, Drowsy and Stable Stable to PACU at:: 09:16
[2023-07-11 11:40] LABS: POC Glucose,Bedside 174 (70-110)
== END 2023-07-11 09:44 | disposition home or self-care (01) ==
PROVIDERS: PCP Family Medicine; Visit Provider Surgery
PROC: 0DJD8ZZ Inspection of Lower Intestinal Tract, Via Natural or Artificial Opening Endoscopic (ICD-10-PCS; CPT 45380; principal; 2023-07-11 08:30)
DX: Z12.11 Encounter for screening for malignant neoplasm of colon (principal); Z86.010 Personal history of colon polyps; K56.2 Volvulus; D12.2 Benign neoplasm of ascending colon; E11.9 Type 2 diabetes mellitus without complications
CPT/HCPCS: 45380; 82962; J1610; J2704